=== PATIENT | male | born 1985 | race Caucasian/White ===

== ENCOUNTER 2017-02-13 19:23 | Emergency (ER) | payer BC, OTHER ==
[~2017-02-13] VITALS: Ht 193 cm; Wt 136.1 kg
--- NOTE | 2017-02-13 19:42 | ED Lower Extremity ---
General Chief Complaint: Lower Extremity Stated Complaint: INJ KNEE Source: patient, family Exam Limitations: no limitations History of Present Illness Time seen by provider: 19:38 Initial Comments Patient was playing whiffle ball the backyard with family prior to arrival and twisted his knee of his right leg while turning to the left and and external rotation manner states that his knee cap was lateral to his tibia. He states this used to happen when he was a kid. At the time the pain was 10 out of 10 but quickly resolved and now is about a 2 out of 10 aching. There is no swelling. He has no numbness or tingling. He is walking and that her his own power. He has no history of surgery or other orthopedic injuries. He is of note a type I diabetic with an A1c in the low 8% range. Constitutional: No chills, No fever Respiratory: No cough, No short of breath Musculoskeletal: see HPI, joint pain (right knee), No joint swelling, No muscle pain Skin: No pruritus, No rash Past Xeofngu-Hekjhf-Lwuxfn Hx Patient Social History Alcohol Use: Rarely Uses Recreational Drug Use: No Smoking Status: Never a Smoker 2nd Hand Smoke Exposure: No Recent Foreign Travel: No Contact w/Someone Who Travel: No Immunizations Up To Date Tetanus Booster (TDap): Unknown Physical Exam Vital Signs Capillary Refill : General Appearance: WD/WN, no apparent distress Neck: non-tender, normal inspection Cardiovascular: normal peripheral pulses, regular rate, rhythm Respiratory: chest non-tender, lungs clear Hips: bilateral hip non-tender Legs: bilateral leg non-tender, bilateral leg normal inspection Knees: left knee non-tender, bilateral knee normal inspection, bilateral knee normal range of motion, right knee pain (right knee tender to palpation. Anterior posterior drawer test and Jake's normal. No pain on straining of lateral or medial collateral ligaments. Normal gait and able to stand full pressure on his right knee.) Ankles: bilateral ankle non-tender, bilateral ankle normal inspection Neurologic/Tendon: normal sensation, normal motor functions, normal tendon functions, responds to pain Neurologic/Psychiatric: alert, oriented x 3 Skin: normal color, warm/dry Progress/Results/Core Measures Progress Note : Time: 19:47 Progress Note Knee exam normal. Rice and follow-up with PCP if it becomes worse. 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 Departure Impression Impression: Primary Impression: Sprain of knee Qualified Codes: S83.91XA - Sprain of unspecified site of right knee, initial encounter Disposition: 01 HOME, SELF-CARE Condition: Stable Departure-Patient Inst. Decision time for Depature: 19:50 Referrals: NO,LOCAL PHYSICIAN (PCP) Primary Care Physician cammie Fraga Patient Instructions: Knee Sprain (DC) Add. Discharge Instructions: You have a stone drain of the right knee that will resolve over the next few weeks. He should use rice which is rest, ice, compression, elevation. Do not do anything that makes her pain worse. If you're having worsening pain or unable to tolerate her work he should follow up with her PCP to get new instructions. At this time he would be okay to return to work without restrictions. Tylenol 650 mg every 6 hours and or Motrin 800 mg every 8 hours as needed for pain control. You can also use things like icy hot on the affected joint. All discharge instructions reviewed with patient and/or family. Voiced understanding. TETE COSME Feb 13, 2017 19:42
[2017-02-13 20:00] VITALS: BP 130/70
== END 2017-02-13 19:57 | disposition home or self-care (01) ==
LOC: EDUNIT# 19:23 → ER 19:29
DX: S83.91XA Sprain of unspecified site of right knee, initial encounter (principal); E10.9 Type 1 diabetes mellitus without complications; X50.9XXA Other and unspecified overexertion or strenuous movements or postures, initial encounter; Y93.69 Activity, other involving other sports and athletics played as a team or group; Y99.8 Other external cause status
CPT/HCPCS: 99283

== ENCOUNTER 2022-06-18 09:11 | Emergency (ER) | payer BC ==
[~2022-06-18] VITALS: Ht 193 cm; Wt 142.4 kg
[2022-06-18] MEDS ORDERED: INSU100V35 (09:33)
[2022-06-18] MEDS ORDERED: LISD30CA3 (09:33)
[2022-06-18] MEDS ORDERED: INSU100V6 (09:33)
[2022-06-18] MEDS ORDERED: ATOR40TA70 (09:33)
[2022-06-18] MEDS ORDERED: LISI40TA9 (09:33)
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
[2022-06-18 09:38] LABS: BASOPHILS # (AUTO) 0.1 10^3/uL (0.0-0.1); BASOPHILS % (AUTO) 1 % (0-10); EOSINOPHILS # (AUTO) 0.1 10^3/uL (0.0-0.3); EOSINOPHILS % (AUTO) 1 % (0-10); HEMATOCRIT 49 % (40-54); HEMOGLOBIN 17.7 g/dL (13.3-17.7); LYMPHOCYTES # (AUTO) 2.3 10^3/uL (1.0-4.0); LYMPHOCYTES % (AUTO) 25 % (12-44); MEAN CORPUSCULAR HEMOGLOBIN 32 pg (25-34); MEAN CORPUSCULAR HGB CONC 36 g/dL (32-36); MEAN CORPUSCULAR VOLUME 87 fL (80-99); MEAN PLATELET VOLUME 10.2 fL (9.0-12.2); MONOCYTES # (AUTO) 0.7 10^3/uL (0.0-1.0); MONOCYTES % (AUTO) 8 % (0-12); NEUTROPHILS # (AUTO) 6.1 10^3/uL (1.8-7.8); NEUTROPHILS % (AUTO) 65 % (42-75); PLATELET COUNT 297 10^3/uL (130-400); WHITE BLOOD COUNT 9.3 10^3/uL (4.3-11.0)
[2022-06-18 09:44] LABS: BILIRUBIN,URINE NEGATIVE (NEGATIVE); CLARITY,URINE CLEAR; COLOR,URINE YELLOW; GLUCOSE, URINE (UA) 3+ (NEGATIVE); KETONES,URINE TRACE (NEGATIVE); LEUKOCYTE ESTERASE ,URINE NEGATIVE (NEGATIVE); NITRITE,URINE NEGATIVE (NEGATIVE); PROTEIN,URINE 3+ (NEGATIVE)
[2022-06-18] MEDS ORDERED: PANTOPRAZOLE 40 MG (PROTONIX) VIAL IV ONE (09:45)
[2022-06-18] MEDS ORDERED: ONDANSETRON 4 MG/2 ML (SDV) Z0FRAN IVP ONE (09:45)
[2022-06-18] MEDS ORDERED: NS IV 1000 ML 1,000 ML IV SCH (09:45)
[2022-06-18 09:48] LABS: ALBUMIN 4.1 GM/DL (3.2-4.5)
[2022-06-18 09:49] LABS: POTASSIUM 4.3 MMOL/L (3.6-5.0)
[2022-06-18 09:50] LABS: CALCIUM 9.8 MG/DL (8.5-10.1)
[2022-06-18 09:51] LABS: TOTAL PROTEIN 7.5 GM/DL (6.4-8.2)
[2022-06-18 09:53] LABS: BILIRUBIN,TOTAL 1.4 MG/DL (0.1-1.0)
[2022-06-18 09:53] LABS: AMORPHOUS SEDIMENT,UR RARE AMOR URATES /LPF; BACTERIA,URINE NEGATIVE /HPF; SQUAMOUS EPITHELIAL CELL,UR 0-2 /HPF
[2022-06-18 09:55] LABS: CREATININE SERUM 1.29 MG/DL (0.60-1.30)
[2022-06-18 09:56] LABS: AMPHETAMINE SCREEN, URINE POSITIVE (NEGATIVE); BARBITURATE SCREEN URINE NEGATIVE (NEGATIVE); BENZODIAZEPINES SCREEN URINE NEGATIVE (NEGATIVE); CANNABINOID SCREEN, URINE NEGATIVE (NEGATIVE); COCAINE SCREEN URINE NEGATIVE (NEGATIVE); METHADONE STAT NEGATIVE (NEGATIVE); OPIATE SCREEN URINE NEGATIVE (NEGATIVE); OXYCODONE STAT NEGATIVE (NEGATIVE); PROPOXYPHENE STAT NEGATIVE (NEGATIVE); TRICYCLIC ANTIDEPRESSANTS SCRE NEGATIVE (NEGATIVE)
[2022-06-18] MEDS ORDERED: CATHETER FLUSH 10 ML SYR IV PRN (10:00)
[2022-06-18] MEDS ORDERED: NS 100 ML (IVPB) BAG IV ONE (10:00)
[2022-06-18] MEDS ORDERED: HOLD METFORMIN - RECEIVED CONTRAST 20 ML VIAL IV SCH (10:00)
[2022-06-18] MEDS ORDERED: IOHEXOL 350 MG/ML 100 ML (OMNIPAQUE 350) VIAL IV ONE (10:00)
--- NOTE | 2022-06-18 10:16 | Diagnostic Imaging Report ---
INDICATION: Abdominal pain. TECHNIQUE: Multiple contiguous axial images were obtained through the abdomen and pelvis after administration of intravenous contrast. Auto Exposure Controls were utilized during the CT exam to meet ALARA standards for radiation dose reduction. All CT scans use one or more of the following dose optimizing techniques: automated exposure control, MA and/or KvP adjustment based on patient size and exam type or iterative reconstruction. There is no previous study for comparison. FINDINGS: Visualized portions of the lung bases are clear. There are no pleural fluid collections. There is no free intraperitoneal air. The liver and gallbladder appear normal. Spleen, adrenals, and pancreas are normal. Kidneys are unremarkable except for a couple small cysts in the left kidney. There is no hydronephrosis or renal stone. There is no retroperitoneal mass or adenopathy. There is no ascites or abnormal fluid collection. Visualized bowel loops appear unremarkable. The appendix appears normal. There is no pelvic mass or free fluid. IMPRESSION: No acute process visualized in the abdomen or pelvis. Dictated by: Dictated on workstation # [id number]
[2022-06-18] MEDS ORDERED: KETOROLAC 30 MG/ML VIAL IVP ONE (10:30)
--- NOTE | 2022-06-18 11:18 | Diagnostic Imaging Report ---
INDICATION: Abdominal pain. PROCEDURE: Ultrasound abdomen complete. TECHNIQUE: Multiple real-time grayscale images were obtained of the abdomen in various projections. The liver is enlarged at 20 cm. Portal vein is patent and shows normal direction of flow. No liver mass is detected. The bladder is without stones or sludge. There is no wall thickening or biliary duct dilatation. Pancreas was obscured. Spleen is normal in size 11.8 cm. Aorta is obscured. IVC is patent. Kidneys are unremarkable apart from approximately 1 cm cortical cyst. No calculi or hydronephrosis. There is no ascites. IMPRESSION: 1. Mild hepatomegaly. 2. Small left renal cyst. The study is otherwise unremarkable. Dictated by: Dictated on workstation # [id number]
[2022-06-18] MEDS ORDERED: HYOS0.1283 SL (11:33)
[2022-06-18] MEDS ORDERED: KETO10TA PO (11:33)
[2022-06-18] MEDS ORDERED: PANT40TA2 PO (11:33)
[2022-06-18] MEDS ORDERED: ONDA8TAB13 PO (11:33)
[2022-06-18 11:48] VITALS: BP 148/106
== END 2022-06-18 11:47 | disposition home or self-care (01) ==
LOC: EDUNIT# 09:11 → ER 09:15
DX: E10.9 Type 1 diabetes mellitus without complications (principal); R10.11 Right upper quadrant pain; R10.12 Left upper quadrant pain; R11.0 Nausea; F17.290 Nicotine dependence, other tobacco product, uncomplicated; Z28.311 Partially vaccinated for COVID-19
CPT/HCPCS: 36415; 74177; 76700; 80053; 80306; 81000; 82150; 83690; 85025